=== PATIENT | male | born 1955 | race Two or more races ===

== ENCOUNTER 2017-11-27 17:31 | Emergency (ER) | payer OTHER ==
[~2017-11-27] VITALS: Ht 167.6 cm; Wt 112.9 kg
[2017-11-27] MEDS ORDERED: LANTUS SOL100 UNIT/1 SQ (17:43)
[2017-11-27] MEDS ORDERED: CARDURA1 MG PO (17:45)
[2017-11-27] MEDS ORDERED: PRECOSE25 MG PO (17:46)
[2017-11-27] MEDS ORDERED: GLIMEPIRIDE4 MG PO (17:46)
[2017-11-27] MEDS ORDERED: NOVOLOG100 UNIT/1 SQ (17:48)
== END 2017-11-27 21:49 | disposition home or self-care (01) ==
LOC: ER 17:31
DX: G44.89 Other headache syndrome (principal); I10 Essential (primary) hypertension; F43.8 Other reactions to severe stress